=== PATIENT | female | born 1975 | race Caucasian/White ===

== ENCOUNTER 2016-10-01 17:46 | Emergency (ER) | payer OTHER ==
[2016-10-01 19:12] LABS: HEMOGLOBIN 12.8 gm/dl (12.3-15.3); RED BLOOD COUNT 4.01 M/UL (4.00-5.10); WHITE BLOOD COUNT 11.9 K/UL (4.5-11.0)
[2016-10-01 19:34] LABS: BUN/CREATININE RATIO 13 (0-10)
== END 2016-10-01 20:47 | disposition home or self-care (01) ==
LOC: ER1 17:46
PROVIDERS: Physician Assistant
DX: N39.0 Urinary tract infection, site not specified (principal); F17.210 Nicotine dependence, cigarettes, uncomplicated; Z87.442 Personal history of urinary calculi; Z88.0 Allergy status to penicillin; Z88.5 Allergy status to narcotic agent
CPT/HCPCS: 36415; 80053; 81001; 85025; 87077; 87086; 87186; 96372; 96374; 96375; 99284; J0696; J1885; J2405; J7030